=== PATIENT | male | born 1980 | race Caucasian/White ===

== ENCOUNTER 2021-01-12 13:00 | Emergency (ER) | payer BC ==
[2021-01-12] MEDS ORDERED: ENDOCET 5-3251 EACH PO ×2 (15:13→15:19)
== END 2021-01-12 15:42 | disposition home or self-care (01) ==
LOC: ER1 13:00
DX: M54.16 Radiculopathy, lumbar region (principal)
CPT/HCPCS: 96374; 96375; 99283; J1100; J1170; J1885; J2405